=== PATIENT | male | born 1970 | race Caucasian/White ===

== ENCOUNTER 2017-09-10 05:52 | Inpatient (IN) | payer OTHER ==
[2017-09-01 13:34] LABS: BASOPHILS % (AUTO) 0.6 % (0.0-2.0); EOSINOPHILS % (AUTO) 2.7 % (1.0-6.0); HEMATOCRIT 47.1 % (41-53); HEMOGLOBIN 16.2 g/dL (13.5-17.5); LYMPHOCYTES # (AUTO) 3.1 K/uL (1.0-4.8); LYMPHOCYTES % (AUTO) 36.3 % (22.0-44.0); MEAN CORPUSCULAR HEMOGLOBIN 29.5 pg (26.0-34.0); MEAN CORPUSCULAR HGB CONC 34.3 G/dL (31.0-37.0); MEAN CORPUSCULAR VOLUME 86 fL (80-100); MONOCYTES # (AUTO) 0.6 K/uL (0.1-1.0); MONOCYTES % (AUTO) 6.4 % (2.0-9.0); NEUTROPHILS # (AUTO) 4.6 K/uL (1.8-7.7); PLATELET COUNT (AUTO) 265 K/uL (150-450); RED BLOOD CELL COUNT(AUTO) 5.48 MIL/uL (4.50-5.90); RED CELL DISTRIBUTION WIDTH 13.3 % (11.5-14.5)
[2017-09-01 13:46] LABS: PROTHROMBIN TIME 10.4 SEC (9.4-11.6)
[2017-09-01 13:49] LABS: ANION GAP 10 mmol/L (8-16); CALCIUM, TOTAL 9.1 mg/dL (8.8-10.5); CARBON DIOXIDE 30 mmol/L (22-29); CHLORIDE 101 mmol/L (98-107); CREATININE 0.79 mg/dL (0.60-1.30); GLOMERULAR FILTR. RATE CALC > 60 mL/min (>60); GLUCOSE,RANDOM 113 mg/dL (70-110); POTASSIUM 3.7 mmol/L (3.5-5.1); SODIUM SERUM 141 mmol/L (136-145); UREA NITROGEN, BLOOD 12 mg/dL (7-18)
[2017-09-01 13:54] LABS: ALANINE AMINOTRANSFERASE 87 U/L (12-78); ALBUMIN 3.8 g/dL (3.4-5.0); ALKALINE PHOSPHATASE 66 U/L (46-116); ASPARTATE AMINOTRANSFERASE 33 U/L (15-37); BILIRUBIN,TOTAL 0.3 mg/dL (0.1-1.0); TOTAL PROTEIN, SERUM 7.3 g/dL (6.4-8.2)
[~2017-09-10] VITALS: Ht 172.7 cm; Wt 78.6 kg
[~2017-09-10 05:52] MED LIST: CeFAZolin 2 GM/DEXTROSE 50 ML IV ONE; RINGERS SOLUTION,LACTATED 1,000 ML IV ONE
[2017-09-10] MEDS ORDERED: CeFAZolin 2 GM/DEXTROSE 50 ML IV ONE (07:00)
[2017-09-10] MEDS ORDERED: RINGERS SOLUTION,LACTATED 1,000 ML IV ONE (07:00)
[2017-09-10] MEDS ORDERED: GELATIN SPONGE,ABSORBABLE 100 MM TP ONE (07:01)
[2017-09-10] MEDS ORDERED: SODIUM CHLORIDE 0.9% 0 ML IV ONE (07:01)
[2017-09-10] MEDS ORDERED: BACITRACIN 50,000 UNITS/VIAL ONE (07:02)
[2017-09-10] MEDS ORDERED: THROMBIN, BOVINE 20000 UNITS/VIAL POWDER TP ONE (07:02)
[2017-09-10] MEDS ORDERED: BUPIVACAINE LIPOSOME/PF 1.3%-13.3MG/ML SUSPENSION 10 ML VIAL INJ ONE (07:15)
[2017-09-10] MEDS ORDERED: SODIUM CHLORIDE 0.9% 20 ML ONE (08:27)
[2017-09-10] MEDS ORDERED: BUPIVACAINE HCL/PF 0.5% 30 ML VIAL ONE (09:47)
[2017-09-10] MEDS ORDERED: BUPIVACAINE HCL/PF 0.5% 30 ML VIAL INJ ONE (09:50)
[2017-09-10] MEDS: OXYGEN THERAPY IH SCH (10:45)
[2017-09-10] MEDS ORDERED: MAG HYDROX/AL HYDROX/SIMETH 30 ML SUSP UDCUP PO PRN (10:45)
[2017-09-10] MEDS ORDERED: ONDANSETRON HCL 4 MG/2 ML VIAL IVP PRN ×3 (10:45→13:15)
[2017-09-10] MEDS ORDERED: RINGERS SOLUTION,LACTATED 1,000 ML IV SCH (10:45)
[2017-09-10] MEDS ORDERED: ACETAMINOPHEN 1000 MG/ISO-OSM 100 ML IV ONE (11:00)
[2017-09-10] MEDS ORDERED: ACETAMINOPHEN 325 MG TABLET PO PRN (11:00)
[2017-09-10] MEDS ORDERED: MORPHINE SULFATE 2 MG/ML SYRINGE IVP PRN ×3 (11:00)
[2017-09-10] MEDS ORDERED: MEPERIDINE-PF 25 MG/ML SYRINGE IVP PRN (11:00)
[2017-09-10] MEDS ORDERED: NALOXONE HCL 0.4 MG/ML VIAL IVP PRN (11:00)
[2017-09-10] MEDS ORDERED: FentaNYL CITRATE-PF 100 MCG/2 ML VIAL IVP PRN ×3 (11:00)
[2017-09-10] MEDS ORDERED: MIDAZOLAM HCL 5 MG/ML VIAL IVP PRN (11:00)
[2017-09-10] MEDS ORDERED: MORPHINE SULFATE 2 MG/ML SYRINGE ONE (11:08)
[2017-09-10] MEDS ORDERED: ONDANSETRON HCL 4 MG/2 ML VIAL ONE (11:09)
[2017-09-10] MEDS ORDERED: DIAZEPAM 5 MG/ML 2 ML SYRINGE IVP PRN (11:30)
[2017-09-10 12:08] VITALS: BP 119/81
[2017-09-10] MEDS ORDERED: SODIUM CHLORIDE 0.9% 1,000 ML IV ONE (13:12)
[2017-09-10] MEDS ORDERED: INFLUENZA VIRUS VACCINE QVS 2017-18 (3YR+)/PF 60 MCG/0.5 ML SYRINGE IM ONE (14:15)
[2017-09-10] MEDS: MORPHINE SULFATE 2 MG/ML SYRINGE IVP PRN ×3 (15:35→23:17)
[2017-09-10 15:45] VITALS: BP 115/75
[2017-09-10] MEDS: CeFAZolin SODIUM 1 GM in DEXTROSE 5%-WATER 10 ML IV SCH ×2 (16:56→23:18)
[2017-09-10 19:30] VITALS: BP 126/80
[2017-09-10] MEDS ORDERED: FentaNYL CITRATE-PF 250 MCG/5 ML VIAL IVP ONE (21:08)
[2017-09-10] MEDS ORDERED: MIDAZOLAM HCL 2 MG/2 ML VIAL IVP ONE (21:08)
[2017-09-10 23:40] VITALS: BP 117/77
[2017-09-11] MEDS: MORPHINE SULFATE 2 MG/ML SYRINGE IVP PRN ×5 (02:45→12:51)
[2017-09-11 05:03] VITALS: BP 113/70
[2017-09-11 06:10] LABS: BASOPHILS % (AUTO) 0.1 % (0.0-2.0); EOSINOPHILS % (AUTO) 0.1 % (1.0-6.0); HEMATOCRIT 41.6 % (41-53); HEMOGLOBIN 14.4 g/dL (13.5-17.5); LYMPHOCYTES # (AUTO) 2.6 K/uL (1.0-4.8); LYMPHOCYTES % (AUTO) 15.9 % (22.0-44.0); MEAN CORPUSCULAR HEMOGLOBIN 29.9 pg (26.0-34.0); MEAN CORPUSCULAR HGB CONC 34.7 G/dL (31.0-37.0); MEAN CORPUSCULAR VOLUME 86 fL (80-100); MONOCYTES # (AUTO) 1.3 K/uL (0.1-1.0); MONOCYTES % (AUTO) 8.1 % (2.0-9.0); NEUTROPHILS # (AUTO) 12.6 K/uL (1.8-7.7); NEUTROPHILS % (AUTO) 75.8 % (40.0-70.0); PLATELET COUNT (AUTO) 222 K/uL (150-450); RED BLOOD CELL COUNT(AUTO) 4.83 MIL/uL (4.50-5.90); RED CELL DISTRIBUTION WIDTH 13.5 % (11.5-14.5)
[2017-09-11 06:35] LABS: ANION GAP 8 mmol/L (8-16); CALCIUM, TOTAL 8.6 mg/dL (8.8-10.5); CARBON DIOXIDE 28 mmol/L (22-29); CHLORIDE 102 mmol/L (98-107); CREATININE 0.85 mg/dL (0.60-1.30); GLOMERULAR FILTR. RATE CALC > 60 mL/min (>60); GLUCOSE,RANDOM 140 mg/dL (70-110); POTASSIUM 3.4 mmol/L (3.5-5.1); SODIUM SERUM 138 mmol/L (136-145); UREA NITROGEN, BLOOD 14 mg/dL (7-18)
[2017-09-11 07:25] VITALS: BP 116/69
[2017-09-11] MEDS: DOCUSATE SODIUM 100 MG CAPSULE PO SCH ×2 (08:34→20:15)
[2017-09-11] MEDS: PANTOPRAZOLE SODIUM 40 MG DR TABLET PO SCH (08:35)
[2017-09-11] MEDS ORDERED: POTASSIUM CHLORIDE 20 MEQ ER TABLET PO ONE (11:00)
[2017-09-11 11:20] VITALS: BP 121/72
[2017-09-11] MEDS ORDERED: MORPHINE SULFATE 10 MG/ML SYRINGE IVP PRN (12:00)
[2017-09-11] MEDS: ACETAMINOPHEN 325 MG TABLET PO PRN ×2 (13:01→20:14)
[2017-09-11] MEDS ORDERED: OxyCODONE HCL 10 MG ER TABLET PO PRN (14:15)
[2017-09-11] MEDS ORDERED: MORPHINE SULFATE 2 MG/ML SYRINGE IVP PRN (14:19)
[2017-09-11 15:10] VITALS: BP 121/70
[2017-09-11] MEDS: CYCLOBENZAPRINE HCL 10 MG TABLET PO SCH ×2 (16:36→20:15)
[2017-09-11] MEDS: OxyCODONE HCL/ACETAMINOPHEN 10-325 MG TABLET PO PRN (16:51)
[2017-09-11 19:18] VITALS: BP 124/74
[2017-09-11 23:37] VITALS: BP 127/81
[2017-09-12] MEDS: ACETAMINOPHEN 325 MG TABLET PO PRN (01:29)
[2017-09-12 04:55] VITALS: BP 117/79
[2017-09-12] MEDS: OxyCODONE HCL/ACETAMINOPHEN 10-325 MG TABLET PO PRN ×2 (05:54→19:57)
[2017-09-12 08:03] VITALS: BP 113/62
[2017-09-12] MEDS: PANTOPRAZOLE SODIUM 40 MG DR TABLET PO SCH (08:42)
[2017-09-12] MEDS: CYCLOBENZAPRINE HCL 10 MG TABLET PO SCH ×3 (08:42→20:41)
[2017-09-12] MEDS: DOCUSATE SODIUM 100 MG CAPSULE PO SCH ×2 (08:43→19:57)
[2017-09-12 11:40] VITALS: BP 120/74
[2017-09-12] MEDS: MORPHINE SULFATE 2 MG/ML SYRINGE IVP PRN ×2 (13:06→21:47)
[2017-09-12 16:16] VITALS: BP 118/71
[2017-09-12 19:49] VITALS: BP 122/73
[2017-09-12] MEDS: OXYGEN THERAPY IH SCH (20:00)
[2017-09-13] VITALS (7 sets, daily range): BP systolic 116–133; BP diastolic 76–94
[2017-09-13] MEDS: PANTOPRAZOLE SODIUM 40 MG DR TABLET PO SCH (08:21)
[2017-09-13] MEDS: DOCUSATE SODIUM 100 MG CAPSULE PO SCH ×2 (08:21→21:23)
[2017-09-13] MEDS: CYCLOBENZAPRINE HCL 10 MG TABLET PO SCH ×3 (08:22→21:23)
[2017-09-13] MEDS: MORPHINE SULFATE 2 MG/ML SYRINGE IVP PRN (08:23)
[2017-09-13] MEDS: ACETAMINOPHEN 325 MG TABLET PO PRN (09:34)
[2017-09-13] MEDS: OxyCODONE HCL/ACETAMINOPHEN 10-325 MG TABLET PO PRN ×2 (10:56→21:23)
[2017-09-13] MEDS: DEXAMETHASONE SOD PHOS 4 MG/ML VIAL IVP SCH ×2 (15:04→21:24)
[2017-09-13] MEDS: MAGNESIUM HYDROXIDE SUSPENSION 30 ML UDCUP PO PRN (21:23)
[2017-09-14] MEDS: MORPHINE SULFATE 2 MG/ML SYRINGE IVP PRN ×2 (02:16→09:55)
[2017-09-14 06:07] VITALS: BP 118/71
[2017-09-14 08:04] VITALS: BP 136/93
[2017-09-14] MEDS: DOCUSATE SODIUM 100 MG CAPSULE PO SCH (09:55)
[2017-09-14] MEDS: PANTOPRAZOLE SODIUM 40 MG DR TABLET PO SCH (09:55)
[2017-09-14 11:38] VITALS: BP 132/84
[2017-09-14] MEDS: MAGNESIUM HYDROXIDE SUSPENSION 30 ML UDCUP PO PRN (11:40)
[2017-09-14] MEDS: OxyCODONE HCL/ACETAMINOPHEN 10-325 MG TABLET PO PRN (11:42)
== END 2017-09-14 12:00 | disposition home or self-care (01) | DRG 455 ==
LOC: 4E 05:52
PROVIDERS: ADMIT Neurological Surgery; ATTEND Neurological Surgery
PROC: 0SG0071 Fusion of Lumbar Vertebral Joint with Autologous Tissue Substitute, Posterior Approach, Posterior Column, Open Approach (ICD-10-PCS; 2017-09-10)
PROC: 0SB20ZZ Excision of Lumbar Vertebral Disc, Open Approach (ICD-10-PCS; 2017-09-10)
PROC: 01NB0ZZ Release Lumbar Nerve, Open Approach (ICD-10-PCS; 2017-09-10)
PROC: 0SG00AJ Fusion of Lumbar Vertebral Joint with Interbody Fusion Device, Posterior Approach, Anterior Column, Open Approach (ICD-10-PCS; principal; 2017-09-10 08:25)
DX: M51.16 Intervertebral disc disorders with radiculopathy, lumbar region (principal)
CPT/HCPCS: 86850; 86900; 86901; 86920; 87081; 90471; 97116; 97162; 97166; 97530; 97535; C1713; G0238; J0131; J0690; J1030; J1100; J2175; J2250; J2270; J2405; J3010; J3490; J7030; J7050; J7060; J7120